=== PATIENT | male | born 1995 | race African-American/Black ===

== ENCOUNTER 2019-05-26 21:20 | Emergency (ER) | payer OTHER ==
[~2019-05-26] VITALS: Ht 193 cm; Wt 72.6 kg
[2019-05-26 21:25] VITALS: BP 124/72
--- NOTE | 2019-05-26 21:35 | NUR ---
PT AAOX4. AMBULATORY. BIBSELF C/O SKIN INFECTION BILATERAL UPPER AND LOWER EXT. +ITCHING. PER PT "URGENT CARE GAVE ME ANTIBIOTICS FOR TEN DAYS." RR EVEN AND UNLABORED. NO ACUTE DISTRESS. AWAITING MD FOR EVAL.
== END 2019-05-26 21:58 | disposition home or self-care (01) ==
LOC: ER 21:26
DX: R21 Rash and other nonspecific skin eruption (principal); Z98.890 Other specified postprocedural states